=== PATIENT | female | born 1990 | race Caucasian/White ===

== ENCOUNTER 2021-04-09 20:40 | Observation (INO) | payer BC, SELFPAY ==
--- NOTE | 2021-04-09 20:40 | OBADM ---
This patient, Lety Johnson, admitted to the OB room [facility] for observation. Patient/family oriented to hospital policies and general routines including ID bracelet, bed and alarms, visiting hours, pain management, procedures, bathroom and other care routines, personal items, smoking policy, room service/diet, and visiting hours. Patient/Family are encouraged to report perceived risks to care and to ask questions if they do not understand what they are told or what they should do.
[2021-04-09 21:00] VITALS: BP 114/69; PULSE 68; TEMP 36.6; BMI 32.2
--- NOTE | 2021-04-09 21:00 | PC.NURSE ---
FHT reactive. Pt to be discharged home and will follow up with PMD in AM. Pt states pain is slightly improved with ice to are.
--- NOTE | 2021-04-09 21:00 | PC.NURSE ---
Pt states she had noted area of point tenderness/pain in left lower back while walking with toddler tonight. Pt states she has no urinary symptoms. States pain is aggrevated with movement. states tries heat which makes. it worse. Pt states she thinks it is a pinched nerve . States states recently has been seeing chiropractor for back pain.
[2021-04-09 21:15] VITALS: BP 93/61; PULSE 69
[2021-04-09 21:30] VITALS: BP 108/57; PULSE 68
--- NOTE | 2021-04-10 03:08 | PC.NURSE ---
Addendum entered by Jose G Durham RN 04/10/21 03:09: Note should be timed 2114 . Original Note: Pt is getting care at [facility]. States she called exchange lia and was told to go to ER>
--- NOTE | 2021-04-11 07:24 | PM.OBTRLD ---
OB - Triage/Final Diagnosis Visit Information Comments/Additional reasons for admission: I have assessed the risk for this patient, Lety Johnson, and determined that she would benefit from observation care. Final Diagnosis (1) Back pain affecting : Code(s): O99.891 - Other specified diseases and conditions complicating ; M54.9 - Dorsalgia, unspecified Status: Acute
== END 2021-04-09 22:08 | disposition home or self-care (01) ==
PROVIDERS: Admitting Provider Student in an Organized Health Care Education/Training Program; Visit Provider Student in an Organized Health Care Education/Training Program
DX: O99.891 Other specified diseases and conditions complicating pregnancy (principal); M54.9 Dorsalgia, unspecified; Z3A.34 34 weeks gestation of pregnancy
CPT/HCPCS: G0378; G0379